=== PATIENT | female | born 1975 | race Asian ===

== ENCOUNTER 2023-03-10 04:06 | Day surgery (SDC) | payer OTHER ==
[2023-03-04 15:04] VITALS: BMI 26.5
[~2023-03-10 04:06] MED LIST: LIDOCAINE 1% P/F 10 MG/ML VIAL INF ONE; ceFAZolin SODIUM 1 GM VIAL IVPB ONE
[2023-03-10] MEDS ORDERED: MIDAZOLAM HCL 2 MG/2 ML SINGLE DOSE VIAL ONE (12:03)
[2023-03-10] MEDS ORDERED: PROPOFOL 20 ML ONE (12:03)
[2023-03-10] MEDS ORDERED: oxyCODONE HCL 5 MG TABLET PO PRN (12:09)
[2023-03-10] MEDS ORDERED: ONDANSETRON 4 MG/2 ML VIAL IVPUSH PRN (12:09)
[2023-03-10] MEDS ORDERED: ACETAMINOPHEN 1000 MG/100 ML BAG IVPB PRN (12:10)
[2023-03-10] MEDS ORDERED: LACTATED RINGERS SOLUTION 1,000 ML IV SCH (12:15)
[2023-03-10] MEDS ORDERED: DEXAMETHASONE SOD PHOSPHATE 4 MG/1 ML VIAL ONE (12:25)
[2023-03-10] MEDS ORDERED: ONDANSETRON 4 MG/2 ML VIAL ONE (12:25)
[2023-03-10] MEDS ORDERED: KETOROLAC TROMETHAMINE 30 MG/1 ML VIAL ONE (12:25)
[2023-03-10] MEDS ORDERED: ceFAZolin SODIUM 1 GM VIAL ONE (12:27)
[2023-03-10] MEDS ORDERED: ceFAZolin SODIUM 1 GM VIAL IVPB ONE (12:27)
[2023-03-10] MEDS ORDERED: LIDOCAINE 1% P/F 10 MG/ML VIAL INF ONE (12:30)
[2023-03-10 13:35] VITALS: BP 135/76
[2023-03-10] MEDS ORDERED: ACETAMINOPHEN INJECTION 100 ML IVPB ONE (13:52)
[2023-03-10 14:08] VITALS: RESP 18; TEMP 98
[2023-03-10 14:38] VITALS: PULSE 64
== END 2023-03-10 15:10 | disposition home or self-care (01) ==
LOC: JASU-SURG 04:06
PROVIDERS: ATTEND Surgery
PROC: 0HBU0ZZ Excision of Left Breast, Open Approach (ICD-10-PCS; principal; 2023-03-10 11:30)
DX: D05.02 Lobular carcinoma in situ of left breast (principal)
CPT/HCPCS: 19281; 76098-TC-FY; 81025; 88307-TC; 94760